=== PATIENT | female | born 2000 | race African-American/Black ===

== ENCOUNTER 2022-08-23 06:41 | Outpatient (CLI) | payer OTHER, SELFPAY ==
--- NOTE | ~2022-08-23 | MR_ITS ---
EXAMINATION: MR knee RT wo con DATE: 08/23/2022 07:20 INDICATION: ACL tear TECHNIQUE: Magnetic resonance imaging (MRI) of the right knee was performed without intravenous contr ast. Sequences included coronal PD-weighted FSE, coronal PD-weighted FS FSE, sagittal T2-weighted FS E, sagittal PD-weighted FS FSE and axial PD weighted fat saturated FSE. COMPARISON: None. FINDINGS: Medial compartment: Medial meniscus is normal. Mild chondral surface irregularity along the medial tibial plateau and ant erior weightbearing medial femoral condyle. Lateral compartment: Lateral meniscus is normal. Additional mild chondral surface regularity along the posterior weightbea ring lateral femoral condyle. Patellofemoral compartment: Articular cartilage is normal. Ligaments and tendons: Posterior cruciate ligament is normal. Postoperative change of prior anterior cruciate ligament recon struction. Increased signal in the graft which is abnormal along with lax appearance to the graft whi ch appears posteriorly bowed along with some wavy contour to the graft fibers anteriorly near the tib ial insertion. Findings are consistent with graft failure. The medial collateral ligament and fibular collateral ligament complex are normal. Mild distal quadriceps tendinopathy without tear. Postoperat chastity changes seen proximal to distally along the central patellar tendon and its anterior tibial tuber osity insertion consistent with prior patellar tendon autograft harvest. The visualized medial and la teral hamstring tendons as well as the iliotibial band are normal. Fluid: Small right knee joint effusion and mild synovitis at the suprapatellar pouch. No loose osteochondral bodies identified. Very small Weller's cyst. Osseous/other: Normal marrow signal. No fracture or pathologic marrow replacing process. IMPRESSION: 1. Likely graft failure of an anterior cruciate ligament reconstruction with patellar tendon autograf t. 2. Mild osteoarthritis with some scattered chondral surface irregularity at the medial and lateral co mpartments Reviewed, dictated and finalized at location A. [employer] IMPRESSION: 1. Likely graft failure of an anterior cruciate ligament reconstruction with pa tellar tendon autograft. 2. Mild osteoarthritis with some scattered chondral surface irregularity at the medial and lateral compartments
== END 2022-08-23 06:42 | disposition home or self-care (01) ==
DX: S83.511D Sprain of anterior cruciate ligament of right knee, subsequent encounter (principal); X58.XXXD Exposure to other specified factors, subsequent encounter; M17.11 Unilateral primary osteoarthritis, right knee
CPT/HCPCS: 73721